=== PATIENT | male | born 1990 | race Caucasian/White ===

== ENCOUNTER 2017-03-18 15:47 | Emergency (ER) | payer SELFPAY ==
[~2017-03-18] VITALS: Ht 175.3 cm; Wt 80.0 kg
[2017-03-18] MEDS ORDERED: KETOROLAC 30MG/ML VIAL IV STA (16:05)
[2017-03-18] MEDS: SODIUM CHLORIDE 0.9% 1,000 ML IV ONE ×2 (16:12→17:00)
[2017-03-18 16:29] LABS: BASOPHILS % 0.2 % (0.0-2.0); EOSINOPHILS % 0.4 % (0.0-5.0); HEMATOCRIT. 40.7 % (42.0-52.0); HEMOGLOBIN. 13.9 g/dL (14.0-18.0); LYMPHOCYTES % 11.7 % (20.0-50.0); MEAN CORPUSCULAR HEMOGLOBIN 29.3 pg (28.0-32.0); MEAN PLATELET VOLUME 8.5 fl (7.4-10.4); NEUTROPHILS % 76.7 % (40.0-76.0); PLATELET 180 x1000/uL (130-400); RED BLOOD CELL COUNT 4.73 mill/uL (4.7-6.1); RED CELL DISTRIBUTION WIDTH 14.4 % (11.6-14.6)
[2017-03-18 16:31] LABS: CHLORIDE 102 mEq/L (98-107)
[2017-03-18 16:40] LABS: CARBON DIOXIDE 31 mEq/L (21-32); ETHANOL BLOOD < 10 mg/dL; PHENYTOIN 0.6 ug/mL (10-20)
[2017-03-18 16:41] LABS: CARBAMAZEPINE < 0.5 ug/mL (4-12); PHENOBARBITAL < 2.1 ug/mL (15.0-40.0)
[2017-03-18 19:04] VITALS: BP 127/69
== END 2017-03-18 19:09 | disposition home or self-care (01) ==
LOC: ER 16:13
DX: G40.909 Epilepsy, unspecified, not intractable, without status epilepticus (principal); R47.89 Other speech disturbances; R41.0 Disorientation, unspecified; Z91.14 Patient's other noncompliance with medication regimen; R03.0 Elevated blood-pressure reading, without diagnosis of hypertension; R00.0 Tachycardia, unspecified
CPT/HCPCS: 36415; 70450; 80053; 80156; 80165; 80184; 80185; 85025; 96360; 99285; G0482; J7030; Z7610